=== PATIENT | female | born 1965 | race Caucasian/White ===

== ENCOUNTER 2021-07-04 09:10 | Outpatient (CLI) | payer OTHER, SELFPAY | END 2021-07-04 23:59 | disposition home or self-care (01) | LOC: MLB 09:10 → EDSTATUS 07-07 07:30 | PROVIDERS: ATTEND Internal Medicine Gastroenterology | DX: Z01.812 Encounter for preprocedural laboratory examination (principal); Z20.822 Contact with and (suspected) exposure to COVID-19 ==